=== PATIENT | male | born 1940 | race Caucasian/White ===

== ENCOUNTER 2022-04-03 11:22 | Inpatient (IN) ==
[2022-04-03] MEDS ORDERED: Ondansetron ODT 4 MG TAB.RAPDIS SL PRN (16:26)
[2022-04-03] MEDS ORDERED: *HR* Warfarin 1 MG TABLET PO SCH (18:00)
[2022-04-03] MEDS: Cholecalciferol (D-3) 1,000 UNIT (25MCG) TABLET PO SCH (19:26)
[2022-04-03] MEDS: Sennosides/Docusate Sodium TABLET PO SCH (19:27)
[2022-04-03] MEDS: [UNRECOGNIZED DRUG - OTHER] PO SCH (20:19)
[2022-04-03] MEDS: Melatonin 3 MG TABLET PO PRN (20:19)
[2022-04-03] MEDS: Latanoprost 2.5 ML BOTTLE BOTH EYES SCH (20:19)
[2022-04-03] MEDS: QUEtiapine Fumarate 25 MG TABLET PO SCH (22:49)
[2022-04-04 08:07] LABS: Basophils # 0.1 K/mcL (0.0-0.2); Basophils % 0.9 %; Eosinophils # 0.4 K/mcL (0.0-0.6); Eosinophils % 6.4 %; Hematocrit 38.5 % (37.5-50.1); Hemoglobin 12.7 g/dL (12.9-16.9); Immature Granulocytes % 0.6 % (0-4); Lymphocytes # 0.9 K/mcL (0.6-4.6); Mean Corpuscular Hemoglobin 31.3 pg (28.0-33.3); Mean Corpuscular Volume 94.8 fL (83.0-100.0); Mean Platelet Volume 11.3 fL (9.4-12.4); Monocytes # 0.5 K/mcL (0.0-1.3); Neutrophils # 4.8 K/mcL (1.6-8.9); Platelet Count 172 K/mcL (140-400); Red Blood Count 4.06 M/mcL (4.19-5.50); Red Cell Distribution Width 14.1 % (11.5-14.5); Segmented Neutrophils % 72.1 %; White Blood Count 6.7 K/mcL (4.3-11.1)
[2022-04-04 08:25] LABS: INR 1.6; Prothrombin Time 17.6 Seconds (9.4-12.1)
[2022-04-04 08:30] LABS: Calcium 9.2 mg/dL (8.6-10.3); Potassium 3.8 mEq/L (3.5-5.1)
[2022-04-04] MEDS ORDERED: Metoprolol XL (24 HR) Succ 50 MG TAB.ER.24H PO SCH (09:00)
[2022-04-04] MEDS: Loratadine 10 MG TABLET PO SCH (10:54)
[2022-04-04] MEDS: [UNRECOGNIZED DRUG - OTHER] PO SCH ×2 (10:54→20:30)
[2022-04-04] MEDS: Metoprolol XL (24 HR) Succ 25 MG TAB.ER.24H PO SCH (17:07)
[2022-04-04] MEDS ORDERED: Warfarin perPT PO PRN (18:00)
[2022-04-04] MEDS ORDERED: *HR* Warfarin 3 MG TABLET PO ONE (18:00)
[2022-04-04] MEDS: Cholecalciferol (D-3) 1,000 UNIT (25MCG) TABLET PO SCH (18:05)
[2022-04-04] MEDS: Sennosides/Docusate Sodium TABLET PO SCH (18:05)
[2022-04-04] MEDS: QUEtiapine Fumarate 25 MG TABLET PO SCH (20:30)
[2022-04-04] MEDS: Melatonin 3 MG TABLET PO PRN (20:30)
[2022-04-04] MEDS: Latanoprost 2.5 ML BOTTLE BOTH EYES SCH (20:31)
[2022-04-05 07:08] LABS: INR 1.9; Prothrombin Time 20.9 Seconds (9.4-12.1)
[2022-04-05] MEDS: Loratadine 10 MG TABLET PO SCH (09:50)
[2022-04-05] MEDS: Metoprolol XL (24 HR) Succ 25 MG TAB.ER.24H PO SCH (09:50)
[2022-04-05] MEDS: [UNRECOGNIZED DRUG - OTHER] PO SCH ×2 (09:53→19:40)
[2022-04-05] MEDS: Cholecalciferol (D-3) 1,000 UNIT (25MCG) TABLET PO SCH (17:55)
[2022-04-05] MEDS: Sennosides/Docusate Sodium TABLET PO SCH (17:55)
[2022-04-05] MEDS ORDERED: *HR* Warfarin 2.5 MG TABLET PO ONE (18:00)
[2022-04-05] MEDS: QUEtiapine Fumarate 25 MG TABLET PO SCH (19:40)
[2022-04-05] MEDS: Melatonin 3 MG TABLET PO PRN (19:40)
[2022-04-05] MEDS: Latanoprost 2.5 ML BOTTLE BOTH EYES SCH (22:04)
[2022-04-06 07:42] LABS: INR 2.5; Prothrombin Time 27.4 Seconds (9.4-12.1)
[2022-04-06] MEDS: Metoprolol XL (24 HR) Succ 25 MG TAB.ER.24H PO SCH (08:57)
[2022-04-06] MEDS: [UNRECOGNIZED DRUG - OTHER] PO SCH ×2 (08:58→20:47)
[2022-04-06] MEDS: Loratadine 10 MG TABLET PO SCH ×2 (09:06→13:12)
[2022-04-06] MEDS: Sennosides/Docusate Sodium TABLET PO SCH (17:07)
[2022-04-06] MEDS: Cholecalciferol (D-3) 1,000 UNIT (25MCG) TABLET PO SCH (17:07)
[2022-04-06] MEDS ORDERED: *HR* LORazepam 1 MG TABLET PO ONE (20:39)
[2022-04-06] MEDS: QUEtiapine Fumarate 25 MG TABLET PO SCH (20:47)
[2022-04-06] MEDS: Latanoprost 2.5 ML BOTTLE BOTH EYES SCH (20:48)
[2022-04-07 07:40] LABS: INR 1.9; Prothrombin Time 20.7 Seconds (9.4-12.1)
[2022-04-07] MEDS: [UNRECOGNIZED DRUG - OTHER] PO SCH ×2 (09:38→16:47)
[2022-04-07] MEDS: Loratadine 10 MG TABLET PO SCH (09:38)
[2022-04-07] MEDS: Metoprolol XL (24 HR) Succ 25 MG TAB.ER.24H PO SCH (09:38)
[2022-04-07] MEDS: Cholecalciferol (D-3) 1,000 UNIT (25MCG) TABLET PO SCH (16:47)
[2022-04-07] MEDS: Sennosides/Docusate Sodium TABLET PO SCH (16:47)
[2022-04-07] MEDS ORDERED: *HR* Warfarin 1 MG TABLET PO ONE (18:00)
[2022-04-07] MEDS: Acetaminophen 325 MG TABLET PO PRN (20:42)
[2022-04-07] MEDS: Melatonin 3 MG TABLET PO PRN (20:43)
[2022-04-07] MEDS: QUEtiapine Fumarate 25 MG TABLET PO SCH (20:43)
[2022-04-07] MEDS: Latanoprost 2.5 ML BOTTLE BOTH EYES SCH (20:50)
[2022-04-08 07:06] LABS: Prothrombin Time 21.7 Seconds (9.4-12.1)
[2022-04-08] MEDS: Metoprolol XL (24 HR) Succ 25 MG TAB.ER.24H PO SCH (10:11)
[2022-04-08] MEDS: Loratadine 10 MG TABLET PO SCH (10:11)
[2022-04-08] MEDS: [UNRECOGNIZED DRUG - OTHER] PO SCH ×2 (10:12→18:15)
[2022-04-08] MEDS ORDERED: Lidocaine Jelly 11 ml Syringe MM ONE (17:12)
[2022-04-08] MEDS ORDERED: *HR* Warfarin 2 MG TABLET PO ONE (18:00)
[2022-04-08] MEDS: Cholecalciferol (D-3) 1,000 UNIT (25MCG) TABLET PO SCH (18:15)
[2022-04-08] MEDS: Sennosides/Docusate Sodium TABLET PO SCH (18:15)
[2022-04-08] MEDS: QUEtiapine Fumarate 25 MG TABLET PO SCH (18:18)
[2022-04-08] MEDS: Melatonin 3 MG TABLET PO PRN (21:05)
[2022-04-08] MEDS: Acetaminophen 325 MG TABLET PO PRN (21:05)
[2022-04-08] MEDS: Latanoprost 2.5 ML BOTTLE BOTH EYES SCH (21:06)
[2022-04-09] MEDS: [UNRECOGNIZED DRUG - OTHER] PO SCH ×2 (07:35→18:30)
[2022-04-09] MEDS: Metoprolol XL (24 HR) Succ 25 MG TAB.ER.24H PO SCH (07:35)
[2022-04-09] MEDS: Loratadine 10 MG TABLET PO SCH (07:35)
[2022-04-09 08:46] LABS: INR 2.3; Prothrombin Time 25.8 Seconds (9.4-12.1)
[2022-04-09] MEDS ORDERED: *HR* Warfarin 1 MG TABLET PO ONE (18:00)
[2022-04-09] MEDS: QUEtiapine Fumarate 25 MG TABLET PO SCH (18:30)
[2022-04-09] MEDS: Cholecalciferol (D-3) 1,000 UNIT (25MCG) TABLET PO SCH (18:30)
[2022-04-09] MEDS: Sennosides/Docusate Sodium TABLET PO SCH (18:30)
[2022-04-09] MEDS: Latanoprost 2.5 ML BOTTLE BOTH EYES SCH (21:06)
[2022-04-09] MEDS: Melatonin 3 MG TABLET PO PRN (23:24)
[2022-04-10 05:10] LABS: INR 2.3; Prothrombin Time 25.9 Seconds (9.4-12.1)
[2022-04-10] MEDS: [UNRECOGNIZED DRUG - OTHER] PO SCH ×2 (10:46→18:17)
[2022-04-10] MEDS: Metoprolol XL (24 HR) Succ 25 MG TAB.ER.24H PO SCH (10:47)
[2022-04-10] MEDS: Loratadine 10 MG TABLET PO SCH (10:47)
[2022-04-10] MEDS ORDERED: *HR* Warfarin 1 MG TABLET PO ONE (18:00)
[2022-04-10] MEDS: QUEtiapine Fumarate 25 MG TABLET PO SCH (18:16)
[2022-04-10] MEDS: Sennosides/Docusate Sodium TABLET PO SCH (18:17)
[2022-04-10] MEDS: Cholecalciferol (D-3) 1,000 UNIT (25MCG) TABLET PO SCH (18:17)
[2022-04-10] MEDS: Melatonin 3 MG TABLET PO PRN (20:20)
[2022-04-10] MEDS: Latanoprost 2.5 ML BOTTLE BOTH EYES SCH (20:20)
[2022-04-11 07:35] LABS: Prothrombin Time 21.7 Seconds (9.4-12.1)
[2022-04-11] MEDS: Loratadine 10 MG TABLET PO SCH (08:50)
[2022-04-11] MEDS: Metoprolol XL (24 HR) Succ 25 MG TAB.ER.24H PO SCH (08:57)
[2022-04-11] MEDS: [UNRECOGNIZED DRUG - OTHER] PO SCH ×2 (09:05→16:37)
[2022-04-11] MEDS: Sennosides/Docusate Sodium TABLET PO SCH (16:36)
[2022-04-11] MEDS: Cholecalciferol (D-3) 1,000 UNIT (25MCG) TABLET PO SCH (16:36)
[2022-04-11] MEDS ORDERED: *HR* Warfarin 2 MG TABLET PO ONE (18:00)
[2022-04-11] MEDS: QUEtiapine Fumarate 25 MG TABLET PO SCH (18:12)
[2022-04-11] MEDS: Latanoprost 2.5 ML BOTTLE BOTH EYES SCH (21:38)
[2022-04-12 08:33] LABS: Prothrombin Time 22.7 Seconds (9.4-12.1)
[2022-04-12] MEDS: Loratadine 10 MG TABLET PO SCH (08:38)
[2022-04-12] MEDS: [UNRECOGNIZED DRUG - OTHER] PO SCH ×2 (08:38→17:06)
[2022-04-12] MEDS: Metoprolol XL (24 HR) Succ 25 MG TAB.ER.24H PO SCH (08:38)
[2022-04-12] MEDS: Cholecalciferol (D-3) 1,000 UNIT (25MCG) TABLET PO SCH (17:06)
[2022-04-12] MEDS: Sennosides/Docusate Sodium TABLET PO SCH (17:06)
[2022-04-12] MEDS ORDERED: *HR* Warfarin 2 MG TABLET PO ONE (18:00)
[2022-04-12] MEDS: Latanoprost 2.5 ML BOTTLE BOTH EYES SCH (21:07)
[2022-04-12] MEDS: QUEtiapine Fumarate 25 MG TABLET PO SCH (21:07)
[2022-04-13] MEDS: [UNRECOGNIZED DRUG - OTHER] PO SCH ×2 (08:05→17:05)
[2022-04-13] MEDS: Metoprolol XL (24 HR) Succ 25 MG TAB.ER.24H PO SCH (08:05)
[2022-04-13] MEDS: Loratadine 10 MG TABLET PO SCH (08:05)
[2022-04-13 08:26] LABS: INR 2.1; Prothrombin Time 23.2 Seconds (9.4-12.1)
[2022-04-13] MEDS: Cholecalciferol (D-3) 1,000 UNIT (25MCG) TABLET PO SCH (17:04)
[2022-04-13] MEDS: Sennosides/Docusate Sodium TABLET PO SCH (17:04)
[2022-04-13] MEDS ORDERED: *HR* Warfarin 2.5 MG TABLET PO ONE (18:00)
[2022-04-13] MEDS: QUEtiapine Fumarate 25 MG TABLET PO SCH (20:45)
[2022-04-13] MEDS: Latanoprost 2.5 ML BOTTLE BOTH EYES SCH (20:46)
[2022-04-14 07:03] LABS: INR 2.3; Prothrombin Time 25.5 Seconds (9.4-12.1)
[2022-04-14 07:40] VITALS: BP 141/72; PULSE 45; RESP 18; TEMP 97.4; O2SAT 96
[2022-04-14] MEDS: [UNRECOGNIZED DRUG - OTHER] PO SCH ×2 (08:03→17:49)
[2022-04-14] MEDS: Loratadine 10 MG TABLET PO SCH (08:03)
[2022-04-14] MEDS: Cholecalciferol (D-3) 1,000 UNIT (25MCG) TABLET PO SCH (17:47)
[2022-04-14] MEDS: Sennosides/Docusate Sodium TABLET PO SCH (17:47)
[2022-04-14] MEDS ORDERED: Flu Vac QV 22-23 (6MOS UP)/PF 0.5 ML SYRINGE IM ONE (18:00)
[2022-04-14] MEDS ORDERED: *HR* Warfarin 2 MG TABLET PO ONE (18:00)
== END 2022-04-14 18:20 | disposition home health service (06) | DRG 725 ==
LOC: SUATTDRO 18:34 → INPPIK 18:34
PROVIDERS: ADMIT Internal Medicine; ATTEND Nurse Practitioner